=== PATIENT | female | born 1960 | race Hispanic/Latino ===

== ENCOUNTER 2018-06-10 16:42 | Emergency (ER) | payer SELFPAY ==
--- NOTE | 2018-06-10 16:51 | Emergency Department Report ---
Blank Doc - Documentation Documentation: This is a 57-year-old female that presents with epigastric pain with nausea and vomiting x6 months. Patient stated has history of umbilical hernia. Denies any radiation of pain. Exam: Incarcerated of umbilical hernia. Unable to reduce in triage. Discoloration noted as well. This initial assessment diagnostic orders/clinical plan/treatment(s) is/are subject to change based on patient's health status, clinical progression and re- assessment by fellow clinical providers in the ED. Further treatment and workup at subsequent clinical providers discretion. Patient/guardians urged not to elope from ED s their condition may be serious if not clinically assessed and managed. Initial orders include: 1-patient sent to main ED for further evaluation and treatment. 2- labs 3- EKG 4- [employer] home mortgage disclosure act specialist notified of physical exam and patient to be brought back [facility].
[2018-06-10] MEDS ORDERED: MORPHINE IV ONE (16:55)
[2018-06-10] MEDS ORDERED: NACL 0.9% 1000 ML 1,000 ML IV ONE (16:55)
[2018-06-10] MEDS ORDERED: ZOFRAN IV ONE (16:55)
--- NOTE | 2018-06-10 17:11 | Emergency Department Report ---
ED Abdominal Pain HPI - General Chief Complaint: Abdominal Pain Stated Complaint: ABD PAIN Time Seen by Provider: 06/10/18 16:52 Source: patient Mode of arrival: Wheelchair Limitations: No Limitations - History of Present Illness Initial Comments: 57-year-old female presents to the ED with abdominal pain that started 1 hour ago. Patient reports periumbilical pain. She states she had an umbilical hernia, but has never been this large. Usually thumb-sized, today golf ball sized. 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 Patient states the items were not heavy. Patient reports diarrhea over the last 3 days. Denies nausea and vomiting. MD Complaint: abdominal pain -: hour(s) (1) Location: periumbilical Radiation: none Migration to: no migration Severity: severe Severity scale (0 -10): 10 Quality: sharp Consistency: constant Improves With: nothing Worsens With: nothing Associated Symptoms: diarrhea - Related Data Previous Rx's Medication Instructions Recorded Last Taken Type ALBUTEROL Inhaler (OR & NICU) 2 puff IH QID PRN #1 inh 03/22/15 Unknown Rx [ProAir HFA Inhaler] Azithromycin [Zithromax Z-ANJALI] 1 mg PO DAILY #6 tab 03/22/15 Unknown Rx predniSONE [Deltasone] 20 mg PO QDAY #5 tab 03/22/15 Unknown Rx Meloxicam 7.5 mg PO QAM #7 tablet 02/21/17 Unknown Rx methOCARBAMOL [Robaxin TAB] 500 mg PO TID #15 tab 02/21/17 Unknown Rx methylPREDNISolone [Medrol] 4 mg PO QAM #1 tab.ds.pk 02/21/17 Unknown Rx traMADol [Ultram] 50 mg PO Q6HR PRN #7 tablet 06/10/18 Unknown Rx Allergies Allergy/AdvReac Type Severity Reaction Status Date / Time cefuroxime axetil Allergy Anaphylaxis Verified 03/21/15 20:58 [From Ceftin] ED Review of Systems ROS: Stated complaint: ABD PAIN Other details as noted in HPI Comment: All other systems reviewed and negative Constitutional: denies: chills, fever Gastrointestinal: abdominal pain, diarrhea. denies: nausea, vomiting ED Past Medical Hx - Past Medical History Previous Medical History?: Yes Hx Arthritis: Yes - Surgical History Past Surgical History?: Yes Hx Open Heart Surgery: Yes Additional Surgical History: TUBAL LIGATION, MVR in January 2018 - Social History Smoking Status: Current Every Day Smoker Substance Use Type: None - Medications Home Medications: Home Medications Medication Instructions Recorded Confirmed Last Taken Type ALBUTEROL Inhaler (OR & NICU) 2 puff IH QID PRN #1 inh 03/22/15 Unknown Rx [ProAir HFA Inhaler] Azithromycin [Zithromax Z-ANJALI] 1 mg PO DAILY #6 tab 03/22/15 Unknown Rx predniSONE [Deltasone] 20 mg PO QDAY #5 tab 03/22/15 Unknown Rx Meloxicam 7.5 mg PO QAM #7 tablet 02/21/17 Unknown Rx methOCARBAMOL [Robaxin TAB] 500 mg PO TID #15 tab 02/21/17 Unknown Rx methylPREDNISolone [Medrol] 4 mg PO QAM #1 tab.ds.pk 02/21/17 Unknown Rx traMADol [Ultram] 50 mg PO Q6HR PRN #7 tablet 06/10/18 Unknown Rx ED Physical Exam - General Limitations: No Limitations General appearance: alert, other (appears uncomfortable) - Head Head exam: Present: atraumatic, normocephalic - Eye Eye exam: Present: normal appearance - ENT ENT exam: Present: mucous membranes moist - Neck Neck exam: Present: normal inspection - Respiratory Respiratory exam: Present: normal lung sounds bilaterally. Absent: respiratory distress - Cardiovascular Cardiovascular Exam: Present: regular rate, normal rhythm - GI/Abdominal GI/Abdominal exam: Present: soft, hernia - Extremities Exam Extremities exam: Present: normal inspection - Neurological Exam Neurological exam: Present: alert, oriented X3 - Psychiatric Psychiatric exam: Present: normal affect, normal mood - Skin Skin exam: Present: warm, dry, intact, normal color ED Course Vital Signs 06/10/18 06/10/18 06/10/18 16:44 17:43 19:32 Temperature 97.4 F L Pulse Rate 66 69 Respiratory 20 20 14 Rate Blood Pressure Blood Pressure 108/70 [Right] O2 Sat by Pulse 99 98 Oximetry 06/10/18 06/10/18 06/10/18 19:46 20:00 20:15 Temperature Pulse Rate 73 72 74 Respiratory 17 13 16 Rate Blood Pressure 141/87 147/89 150/91 Blood Pressure [Right] O2 Sat by Pulse 98 98 98 Oximetry 06/10/18 06/10/1819 20:31 20:45 21:00 Temperature Pulse Rate 78 78 79 Respiratory 16 14 13 Rate Blood Pressure 141/93 132/81 137/85 Blood Pressure [Right] O2 Sat by Pulse 95 99 100 Oximetry 06/10/18 06/10/18 06/10/18 21:15 21:31 21:45 Temperature Pulse Rate 80 81 82 Respiratory 15 15 14 Rate Blood Pressure 138/86 142/85 135/86 Blood Pressure [Right] O2 Sat by Pulse 100 100 100 Oximetry 06/10/18 06/10/18 06/10/18 22:01 22:15 22:31 Temperature Pulse Rate 82 83 82 Respiratory 15 20 16 Rate Blood Pressure 139/85 153/91 152/88 Blood Pressure [Right] O2 Sat by Pulse 99 100 100 Oximetry 06/10/18 06/10/18 22:45 23:01 Temperature Pulse Rate 80 Respiratory 21 Rate Blood Pressure 128/75 126/66 Blood Pressure [Right] O2 Sat by Pulse 100 Oximetry - Reevaluation(s) Reevaluation #1: 06/10/18 17:00 Attempted to reduce hernia, however unable to do so. Will try again once pt is medicated. 06/10/18 18:06 Attempted to reduce hernia again since pt has received morphine. Unable to reduce. Dr Rousseau paged. 06/10/18 18:20 Spoke w/ Dr Rousseau, aware of pt. States if CT shows omentum only and no bowel, pt may require concious sedation to reduce. 06/10/18 19:[address] Rousseau. Hernia appears to contain bowel. Requests that we do conscious sedation to reduce, if unable he will take pt to OR 06/10/18 20:23 Pt sedated w/ ketamine. Hernia reduced. Spoke w/ Dr Rousseau. States if pt's pain is resolved, may discharge and follow up in his office. 06/10/18 22:19 Pt awake and oriented x 3. Denies any pain. Will d/c home. Advised pt to f/u w/ Dr Rousseau tomorrow. - Moderate Sedation Indications: other ASA Class: III Time of Last PO Intake: 15:30 Preparation: artists' booking representative applied, pulse oximeter, capnometry used, supplemental O2 applied, suction/airway equipment at bedside, IV secured Ketamine: IV Ketamine Dose: 80 Patient Tolerated Procedure: well ED Medical Decision Making - Lab Data Result diagrams: 06/10/18 16:58 06/10/18 16:58 - Radiology Data Radiology results: report reviewed, image reviewed - Differential Diagnosis bowel obstruction, incarcerated hernia, strangulated hernia Critical Care Time: Yes Critical care time in (mins) excluding proc time.: 30 Critical care attestation.: If time is entered above; I have spent that time in minutes in the direct care of this critically ill patient, excluding procedure time. Critical Care Time: 30 minutes ED Disposition Clinical Impression: Incarcerated hernia Disposition: DC-01 TO HOME OR SELFCARE Is pt being admited?: No Condition: Stable Instructions: Umbilical Hernia (ED), Moderate Sedation (ED) Prescriptions: traMADol [Ultram] 50 mg PO Q6HR PRN #7 tablet PRN Reason: Pain Referrals: BENJAMIN ROUSSEAU MD [Staff Physician] - 3-5 Days Time of Disposition: 22:18
[2018-06-10 17:55] LABS: Basophils % (Auto) 0.4 % (0.0-1.8); Eosinophils # (Auto) 0.1 K/mm3 (0.0-0.4); Eosinophils % (Auto) 1.3 % (0.0-4.3); Hematocrit 41.9 % (30.3-42.9); Hemoglobin 13.6 gm/dl (10.1-14.3); Lymphocytes # (Auto) 1.7 K/mm3 (1.2-5.4); Lymphocytes % (Auto) 15.9 % (13.4-35.0); Mean Corpuscular HGB Conc 33 % (30-34); Mean Corpuscular Volume 85 fl (79-97); Monocytes # (Auto) 0.7 K/mm3 (0.0-0.8); Monocytes % (Auto) 6.8 % (0.0-7.3); Platelet Count 276 K/mm3 (140-440); Red Blood Count 4.96 M/mm3 (3.65-5.03); Red Cell Distribution Width 19.3 % (13.2-15.2)
[2018-06-10 18:05] LABS: Partial Thromboplastin Time 24.1 Sec. (24.2-36.6)
[2018-06-10 18:12] LABS: Alanine Aminotransferase 16 units/L (7-56); Albumin 3.4 g/dL (3.9-5); BUN/Creatinine Ratio 28; Blood Urea Nitrogen 22 mg/dL (7-17); Calcium 8.3 mg/dL (8.4-10.2); Hemolysis Index 28
[2018-06-10] MEDS ORDERED: ATIVAN IV ONE (19:53)
[2018-06-10] MEDS ORDERED: KETALAR IV ONE (19:53)
[2018-06-10] MEDS ORDERED: NACL 0.9% 1000 ML 1,000 ML ONE (20:24)
--- NOTE | 2018-06-10 20:34 | Cat Scan Report ---
FINAL REPORT EXAM: CT ABDOMEN PELVIS W CON HISTORY: abd pain TECHNIQUE: Following IV administration of 100 cc of Omnipaque 300 axial helical imaging was performe d through the abdomen and pelvis with sagittal and coronal reformatted images obtained. Comparison: CT abdomen and pelvis dated February 21, 2017. FINDINGS: There is [id number] distension of the proximal and mid small bowel (2.6 centimeters) with air-f luid levels. There is herniation of a short-segment of distended mid to distal ileum into an anterior midline abdominal wall hernia which contains distended small bowel, fat and fluid. There is a transi tion in the caliber of the small bowel and the bowel exits the hernia. The caliber of the small bowel distal to the transition measures approximately 1 centimeter. The colon is normal caliber and contains stool. There is no evidence of pneumoperitoneum. There are mildly prominent mesenteric lymph nodes similar in appearance to the previous study. The la rgest measures approximately 1.3 centimeters in the maximal axial dimension. The liver, spleen, pancreas, kidneys and adrenal glands are unremarkable. The gallbladder is moderately distended and unremarkable. The abdominal aorta is normal caliber. The urinary bladder is moderately distended and unremarkable. The uterus and adnexa are unremarkable. There are small bilateral femoral hernias that contain fat. The bony structures are notable for degenerative disc and endplate change at the L2-L3 level similar in appearance to the previous study. IMPRESSION: 1. Small bowel obstruction in the mid to distal ileum secondary to herniation of a short segment of d istended small bowel into and anterior abdominal wall hernia. The above finding was discussed with Dr Jones at 8:30 p.m. June 10, 2018. 2. Small bilateral femoral hernias that contain fat. 3. Stable appearance of mildly prominent mesenteric lymph nodes. 4. Degenerative disc and endplate change L2-L3 level not significantly changed.
[2018-06-10] MEDS ORDERED: KETALAR ONE (23:00)
[2018-06-10 23:20] VITALS: BP 126/66
== END 2018-06-10 23:30 | disposition home or self-care (01) ==
LOC: ED 16:42
DX: K46.0 Unspecified abdominal hernia with obstruction, without gangrene (principal); M19.90 Unspecified osteoarthritis, unspecified site; F17.200 Nicotine dependence, unspecified, uncomplicated; Z98.51 Tubal ligation status; Z88.1 Allergy status to other antibiotic agents
CPT/HCPCS: 36415; 74177; 80053; 83690; 85025; 85610; 85730; 93005; 93010; 96361; 96374; 96375; 99291; J2060; J2270; J2405; J7030; Q9967

== ENCOUNTER 2018-07-23 06:09 | Inpatient (IN) | payer OTHER ==
[2018-07-23] MEDS ORDERED: NACL 0.9% 1000 ML 1,000 ML IV ONE (06:25)
[2018-07-23 06:50] LABS: Hematocrit 37.3 % (30.3-42.9); Hemoglobin 12.2 gm/dl (10.1-14.3); Mean Corpuscular HGB Conc 33 % (30-34); Mean Corpuscular Volume 86 fl (79-97); Platelet Count 236 K/mm3 (140-440); Red Blood Count 4.32 M/mm3 (3.65-5.03); Red Cell Distribution Width 19.2 % (13.2-15.2)
[2018-07-23 07:14] LABS: Alanine Aminotransferase 18 units/L (7-56); Albumin 3.3 g/dL (3.9-5); BUN/Creatinine Ratio 19; Blood Urea Nitrogen 13 mg/dL (7-17); Calcium 8.2 mg/dL (8.4-10.2); Hemolysis Index 19
[2018-07-23] MEDS ORDERED: ZOFRAN IV ONE (07:30)
[2018-07-23] MEDS ORDERED: SUBLIMAZE IV ONE ×2 (07:30→09:10)
--- NOTE | 2018-07-23 07:37 | Emergency Department Report ---
HPI - General Chief Complaint: Abdominal Pain Time Seen by Provider: 07/23/18 07:25 - HPI HPI: Room 20 The patient is a 57-year-old female presenting with a chief complaint of abdominal pain. The patient states she was awakened at 03:00 this morning with pain at her umbilical hernia site. Patient states the pain has been constant and unbearable. Patient denies nausea vomiting or fever. The patient states her last bowel movement occurred yesterday. The patient states she went to sleep at 22:00 last night and was asymptomatic Location: Abdomen Duration: [See above] Quality: [See above] Severity: [See above] Modifying factors: [see above] Context: [see above] Mode of transportation: [not driving] ED Past Medical Hx - Past Medical History Previous Medical History?: Yes Hx Hypertension: Yes Hx Arthritis: Yes Hx COPD: Yes (no home O2) Additional medical history: Umbilical hernia - Surgical History Past Surgical History?: Yes Hx Open Heart Surgery: Yes Additional Surgical History: TUBAL LIGATION, MVR in January 2018 - Family History Family history: no significant - Social History Smoking Status: Former Smoker (none 1.5 years) Substance Use Type: None - Medications Home Medications: Home Medications Medication Instructions Recorded Confirmed Last Taken Type ALBUTEROL Inhaler (OR & NICU) 2 puff IH QID PRN #1 inh 03/22/15 07/23/18 07/23/18 Rx [ProAir HFA Inhaler] Folic Acid [Folvite] 1 mg PO QDAY 07/23/18 07/23/18 07/22/18 History Metoprolol [Lopressor] mg PO BID 07/23/18 07/22/18 History predniSONE [Deltasone] 2.5 mg PO QDAY 07/23/18 07/23/18 07/22/18 History ED Review of Systems ROS: Stated complaint: HERNIA Other details as noted in HPI Constitutional: no symptoms reported. denies: fever Eyes: denies: eye pain ENT: denies: throat pain Respiratory: no symptoms reported Cardiovascular: denies: chest pain Endocrine: no symptoms reported Gastrointestinal: abdominal pain. denies: nausea, vomiting Genitourinary: denies: dysuria Musculoskeletal: denies: back pain Neurological: denies: headache Physical Exam - Physical Exam Vital Signs: Vital Signs 07/23/18 07/23/18 06:16 07:29 Temperature 98.6 F 97.9 F Pulse Rate 82 83 Respiratory 18 20 Rate Blood Pressure 111/49 Blood Pressure 110/72 [Right] O2 Sat by Pulse 95 93 Oximetry Physical Exam: GENERAL: The patient is well-developed well-nourished female lying on stretcher appearing to be in moderate discomfort. [] HEENT: Normocephalic. Atraumatic. Extraocular motions are intact. Patient has moist mucous membranes. NECK: Supple. Trachea midline CHEST/LUNGS: There is no respiratory distress noted. HEART/CARDIOVASCULAR: Regular. There is no tachycardia. There is no gallop rub or murmur. ABDOMEN: Umbilical hernia is present, firm and very tender to palpation. Unable to reduce with direct pressure. SKIN: There is no rash. There is no edema. There is no diaphoresis. NEURO: The patient is awake, alert, and oriented. The patient is cooperative. The patient has normal speech MUSCULOSKELETAL: There is no evidence of acute injury. ED Course Vital Signs 07/23/18 07/23/18 06:16 07:29 Temperature 98.6 F 97.9 F Pulse Rate 82 83 Respiratory 18 20 Rate Blood Pressure 111/49 Blood Pressure 110/72 [Right] O2 Sat by Pulse 95 93 Oximetry - Consultations Consultation #1: 07/23/18 07:36 Surgery paged- case discussed with Dr Helms 07/23/18 09:16 Surgery paged 07/23/18 09:[address] Helms. Plan to take to the OR to reduce the incarcerated hernia. Have hospitalist admit ED Medical Decision Making - Lab Data Result diagrams: 07/23/18 06:33 07/23/18 06:33 Laboratory Tests 07/23/18 07/23/18 06:33 06:33 WBC 25.5 H RBC 4.32 Hgb 12.2 Hct 37.3 MCV 86 MCH 28 MCHC 33 RDW 19.2 H Plt Count 236 Add Manual Diff Complete Total Counted 100 Seg Neuts % (Manual) 85.0 H Band Neutrophils % 0 Lymphocytes % (Manual) 7.0 L Reactive Lymphs % (Man) 0 Monocytes % (Manual) 6.0 Eosinophils % (Manual) 2.0 Basophils % (Manual) 0 Metamyelocytes % 0 Myelocytes % 0 Promyelocytes % 0 Blast Cells % 0 Nucleated RBC % Not Reportable Seg Neutrophils # Man 21.7 H Band Neutrophils # 0.0 Lymphocytes # (Manual) 1.8 Abs React Lymphs (Man) 0.0 Monocytes # (Manual) 1.5 H Eosinophils # (Manual) 0.5 H Basophils # (Manual) 0.0 Metamyelocytes # 0.0 Myelocytes # 0.0 Promyelocytes # 0.0 Blast Cells # 0.0 WBC Morphology Not Reportable Hypersegmented Neuts Not Reportable Hyposegmented Neuts Not Reportable Hypogranular Neuts Not Reportable Smudge Cells Not Reportable Toxic Granulation Not Reportable Toxic Vacuolation Not Reportable Dohle Bodies Not Reportable Pelger-Huet Anomaly Not Reportable Robbie Rods Not Reportable Platelet Estimate Consistent w auto Clumped Platelets Not Reportable Plt Clumps, EDTA Not Reportable Large Platelets Not Reportable Giant Platelets Not Reportable Platelet Satelliting Not Reportable Plt Morphology Comment Not Reportable RBC Morphology Not Reportable Dimorphic RBCs Not Reportable Polychromasia Not Reportable Hypochromasia Not Reportable Poikilocytosis Few Anisocytosis 1+ Microcytosis Few Macrocytosis Not Reportable Spherocytes Not Reportable Pappenheimer Bodies Not Reportable Sickle Cells Not Reportable Target Cells Not Reportable Tear Drop Cells Not Reportable Ovalocytes Rare Helmet Cells Not Reportable Vargas-Spangle Bodies Not Reportable [place] Rings Not Reportable [place] Cells Not Reportable Bite Cells Not Reportable Crenated Cell Not Reportable Elliptocytes Not Reportable Acanthocytes (Spur) Not Reportable Rouleaux Not Reportable Hemoglobin C Crystals Not Reportable Schistocytes Not Reportable Malaria parasites Not Reportable Fran Bodies Not Reportable Hem Pathologist Commnt No Sodium 137 Potassium 3.6 Chloride 101.3 Carbon Dioxide 24 Anion Gap 15 BUN 13 Creatinine 0.7 Estimated GFR > 60 BUN/Creatinine Ratio 19 Glucose 144 H Calcium 8.2 L Total Bilirubin 1.00 AST 13 ALT 18 Alkaline Phosphatase 70 Total Protein 5.6 L Albumin 3.3 L Albumin/Globulin Ratio 1.4 - Radiology Data Radiology results: report reviewed (CT abdomen and pelvis), image reviewed (CT abdomen and pelvis) [facility] [address] [place] [address] Cat Scan Report Signed Patient: BALWINDER CURTIS MR#: [id number] : 1960 Acct:[id number] Age/Sex: 57 / F ADM Date: 07/23/18 Loc: ED Attending Dr: Ordering Physician: RANDY ROMERO MD Date of Service: 07/23/18 Procedure(s): CT abdomen pelvis w con Accession Number(s): [id number] cc: RANDY ROMERO MD CT ABDOMEN PELVIS WITH CONTRAST: HISTORY: Umbilical hernia, acute abdominal pain. COMPARISON: 06/10/18. TECHNIQUE: Helical CT in 1.25mm intervals following IV contrast. Sagittal and coronal reconstructions. FINDINGS: Lung bases: Borderline to mild cardiomegaly. Small right pleural effusion. Multifocal infiltrates have developed in the right middle lobe, right lower lobe and medial left lower lobe. Liver: Within normal limits. Biliary system: Normal. Pancreas: Normal. Spleen: Normal. Kidneys/ureters/bladder: Normal. 1 cm left renal cyst is noted. Adrenal glands: Normal. Aorta: Mild diffuse calcifications. No stenosis, aneurysm or dissection. Intestines: An umbilical hernia with a 1.6 cm neck is again identified. A short segment of small bowel is incorporated into the hernia sac which measures approximately 7 cm in diameter. There is a small amount of ascitic fluid in the hernia sac but no obvious thickened or ischemic bowel loops. There appear to be a few proximal small bowel loops which are borderline dilated with small fluid levels. The remainder of the GI system is unremarkable given no oral contrast was administered. Appendix: Normal. Pelvic viscera: The uterus is slightly heterogeneous suggesting small fibroids. The adnexa are unremarkable. Ascites: None. Adenopathy: None. Musculoskeletal: Intact. Mild thoracolumbar spondylosis. IMPRESSION: Umbilical hernia containing a short segment of small bowel as outlined above. These findings are not significantly changed since 06/10/18. Multifocal infiltrates at the lung bases. Consider pneumonia or aspiration. Mild cardiomegaly and small right pleural effusion. Transcribed By: TTR Dictated By: LISET PEREZ JR, MD Electronically Authenticated By: LISET PEREZ JR, MD Signed Date/Time: 07/23/18908 DD/ 4 TD/TT: 07/23/18908 - Differential Diagnosis incarcerated hernia, strangulated hernia Critical care attestation.: If time is entered above; I have spent that time in minutes in the direct care of this critically ill patient, excluding procedure time. ED Disposition Clinical Impression: Acute abdominal pain, Incarcerated hernia, Leukocytosis Disposition: OP ADMIT IP TO THIS HOSP Is pt being admited?: Yes Does the pt Need Aspirin: No Condition: Fair Instructions: Abdominal Pain (ED) Referrals: DELFINO LOPEZ MD [Primary Care Provider] - 3-5 Days Time of Disposition: 09:23 (hospitalist paged)
[2018-07-23 08:45] LABS: Basophils % (Manual) 0 % (0.0-1.8); Total Cells Counted 100
[2018-07-23 08:46] LABS: Anisocytosis 1+; Ovalocytes Rare; Platelet Estimate Consistent w Auto; Poikilocytosis Few
--- NOTE | 2018-07-23 09:13 | Cat Scan Report ---
CT ABDOMEN PELVIS WITH CONTRAST: HISTORY: Umbilical hernia, acute abdominal pain. COMPARISON: 06/10/18. TECHNIQUE: Helical CT in 1.25mm intervals following IV contrast. Sagittal and coronal reconstructions. FINDINGS: Lung bases: Borderline to mild cardiomegaly. Small right pleural effusion. Multifocal infiltrates have developed in the right middle lobe, right lower lobe and medial left lower lobe. Liver: Within normal limits. Biliary system: Normal. Pancreas: Normal. Spleen: Normal. Kidneys/ureters/bladder: Normal. 1 cm left renal cyst is noted. Adrenal glands: Normal. Aorta: Mild diffuse calcifications. No stenosis, aneurysm or dissection. Intestines: An umbilical hernia with a 1.6 cm neck is again identified. A short segment of small bowel is incorporated into the hernia sac which measures approximately 7 cm in diameter. There is a small amount of ascitic fluid in the hernia sac but no obvious thickened or ischemic bowel loops. There appear to be a few proximal small bowel loops which are borderline dilated with small fluid levels. The remainder of the GI system is unremarkable given no oral contrast was administered. Appendix: Normal. Pelvic viscera: The uterus is slightly heterogeneous suggesting small fibroids. The adnexa are unremarkable. Ascites: None. Adenopathy: None. Musculoskeletal: Intact. Mild thoracolumbar spondylosis. IMPRESSION: Umbilical hernia containing a short segment of small bowel as outlined above. These findings are not significantly changed since 06/10/18. Multifocal infiltrates at the lung bases. Consider pneumonia or aspiration. Mild cardiomegaly and small right pleural effusion.
[2018-07-23 09:23] LABS: Bilirubin,Urine NEG (Negative); Blood,Urine NEG (Negative); Color,Urine Yellow (Yellow); Mucus,Urine FEW /HPF; Protein,Urine <15 mg/dL mg/dL (Negative)
[2018-07-23] MEDS ORDERED: DILAUDID IV ONE (10:15)
[2018-07-23] MEDS ORDERED: SUBLIMAZE IV PRN (12:17)
[2018-07-23] MEDS ORDERED: NARCAN 0.4 MG/1 ML IV PRN (12:17)
[2018-07-23] MEDS ORDERED: ZOFRAN IV PRN ×2 (12:17→15:53)
[2018-07-23] MEDS ORDERED: DILAUDID IV PRN (12:17)
[2018-07-23] MEDS ORDERED: DEMEROL IV PRN (12:17)
--- NOTE | 2018-07-23 12:29 | Anesthesia Day of Surgery ---
Anesthesia Day of Surgery - Day of Surgery Patient Examined: Yes Patient H&P Reviewed: Yes Patient is NPO: Yes Beta Blockers: Yes Cardiac Clearance: No Pulmonary Clearance: No
--- NOTE | 2018-07-23 12:29 | Anesthesia Consultation ---
Anesthesia Consult and Med Hx Date of service: 07/23/18 - Airway Anesthetic Teeth Evaluation: Dentures ROM Head & Neck: Adequate Mental/Hyoid Distance: Adequate Mallampati Class: Class II Intubation Access Assessment: Good - Pulmonary Exam CTA: Yes - Cardiac Exam Cardiac Exam: RRR - Pre-Operative Health Status ASA Pre-Surgery Classification: ASA3, Emergency Proposed Anesthetic Plan: General - Pulmonary COPD: Yes (no home O2) - Cardiovascular System Hx Hypertension: Yes
[2018-07-23] MEDS ORDERED: NACL 0.9% 1000 ML 1,000 ML ONE (12:35)
[2018-07-23] MEDS: NACL 0.9% 1000 ML 1,000 ML IV SCH ×2 (12:43→21:42)
[2018-07-23] MEDS ORDERED: LEVAQUIN 500MG/100ML 500 MG/100 ML BAG IV NR (13:00)
[2018-07-23] MEDS ORDERED: PROAIR IH PRN (13:19)
--- NOTE | 2018-07-23 13:40 | Consultation ---
History of Present Illness Consult date: 07/23/18 Reason for consult: abdominal pain Chief complaint: abdominal pain - History of present illness History of present illness: 57 yo obese F with hx of known umbilical hernia, mitral valve replacement ([facility]) presents to ER with acute onset pain at the umbilicus, sharp, nonradiating. No alleviating or exacerbating factors. She has had the hernia for 3 years. She was seen in the ER in May 2018 for the same reason. The hernia was reduced after ketamine was administered and the patient was told to follow up with Dr. Matos. She did not follow up because she didn't have any insurance. She denies f/c, cp, sob, n/v, c/d. She last saw her sanitation truck cleaner Dr. Jaramillo last month who she states said everything was ok with her heart. She is not on any blood thinners. Past History Past Medical History: hypertension, hyperlipidemia, other (mitral valve) Past Surgical History: Other (mitral valve replacement (biologic) and tubal ligation) Social history: no significant social history Family history: no significant family history Medications and Allergies Allergies Allergy/AdvReac Type Severity Reaction Status Date / Time amoxicillin [From Augmentin] Allergy Vomiting Verified 07/23/18 07:54 cefuroxime axetil Allergy Anaphylaxis Verified 03/21/15 20:58 [From Ceftin] clavulanic acid Allergy Vomiting Verified 07/23/18 07:54 [From Augmentin] Home Medications Medication Instructions Recorded Confirmed Last Taken Type ALBUTEROL Inhaler (OR & NICU) 2 puff IH QID PRN #1 inh 03/22/15 07/23/18 07/22/18 07:00 Rx [ProAir HFA Inhaler] AtorvaSTATin [Lipitor] 40 mg PO QHS 07/23/18 07/23/18 07/22/18 21:00 History Folic Acid [Folvite] 1 mg PO QDAY 07/23/18 07/23/18 07/22/18 09:00 History Furosemide [Lasix TAB] 40 mg PO QDAY 07/23/18 07/23/18 07/22/18 09:00 History Metoprolol [Lopressor] 25 mg PO BID 07/23/18 07/23/18 07/22/18 09:00 History Potassium Chloride [K-Dur] 20 meq PO BID 07/23/18 07/23/18 07/22/18 09:00 History predniSONE [Deltasone] 2.5 mg PO QDAY 07/23/18 07/23/18 07/22/18 09:00 History Active Meds: Active Medications Fentanyl (Sublimaze) 50 mcg IV Q5MIN PRN PRN Reason: Pain , Severe (7-10) Stop: 07/23/18 23:59 Hydromorphone HCl (Dilaudid) 0.25 mg IV Q10MIN PRN PRN Reason: Pain, Moderate (4-6) Stop: 07/23/18 23:59 Metronidazole (Flagyl 500 Mg/100 Ml) 500 mg in 100 mls @ 200 mls/hr IV PREOP NR; Protocol Stop: 07/23/18 23:59 Levofloxacin/Dextrose (Levaquin 500mg/100ml) 500 mg in 100 mls @ 100 mls/hr IV PREOP NR; Protocol Stop: 07/23/18 23:59 Sodium Chloride (Nacl 0.9% 1000 Ml) 1,000 mls @ 75 mls/hr IV DIRECT RICKY Last Admin: 07/23/18 12:43 Dose: 75 mls/hr Documented by: Meperidine HCl (Demerol) 25 mg IV ONCE PRN PRN Reason: Shivering Stop: 07/23/18 23:59 Naloxone HCl (Narcan 0.4 Mg/1 Ml) 0.1 mg IV Q2MIN PRN PRN Reason: Res Rate </= 8 or 02 SAT < 92% Stop: 07/23/18 23:59 Ondansetron HCl (Zofran) 4 mg IV ONCE PRN PRN Reason: Nausea And Vomiting Stop: 07/23/18 23:59 Review of Systems All systems: negative (10 pt ROS performed and negative except for that listed in HPI) Exam Vital Signs Temp Pulse Resp BP Pulse Ox 98.6 F 82 18 111/49 95 07/23/18 06:16 07/23/18 06:16 07/23/18 06:16 07/23/18 06:16 07/23/18 06:16 Narrative exam: Gen: AAOx3. moderate distress due to abdominal pain ENT: no scleral icterus or conjunctival pallor CV: s1, s2+ resp: even and unlabored Abd: soft, ND, obese, + TTP at the umbilicus. Firm umbilical hernia, not reducible, very TTP. Mild blue discoloration of skin. no r/r/g Ext: no c/c/e Results - Labs 07/23/18 06:33 07/23/18 06:33 Abnormal lab results 07/23/18 07/23/18 Range/Units 06:33 06:33 WBC 25.5 H (4.5-11.0) K/mm3 RDW 19.2 H (13.2-15.2) % Seg Neuts % (Manual) 85.0 H (40.0-70.0) % Lymphocytes % (Manual) 7.0 L (13.4-35.0) % Seg Neutrophils # Man 21.7 H (1.8-7.7) K/mm3 Monocytes # (Manual) 1.5 H (0.0-0.8) K/mm3 Eosinophils # (Manual) 0.5 H (0.0-0.4) K/mm3 Glucose 144 H (65-100) mg/dL Calcium 8.2 L (8.4-10.2) mg/dL Total Protein 5.6 L (6.3-8.2) g/dL Albumin 3.3 L (3.9-5) g/dL Diabetes panel 07/23/18 Range/Units 06:33 Sodium 137 (137-145) mmol/L Potassium 3.6 (3.6-5.0) mmol/L Chloride 101.3 (98-107) mmol/L Carbon Dioxide 24 (22-30) mmol/L BUN 13 (7-17) mg/dL Creatinine 0.7 (0.7-1.2) mg/dL Glucose 144 H (65-100) mg/dL Calcium 8.2 L (8.4-10.2) mg/dL AST 13 (5-40) units/L ALT 18 (7-56) units/L Alkaline Phosphatase 70 (35-129) units/L Total Protein 5.6 L (6.3-8.2) g/dL Albumin 3.3 L (3.9-5) g/dL Calcium panel 07/23/18 Range/Units 06:33 Calcium 8.2 L (8.4-10.2) mg/dL Albumin 3.3 L (3.9-5) g/dL Pituitary panel 07/23/18 Range/Units 06:33 Sodium 137 (137-145) mmol/L Potassium 3.6 (3.6-5.0) mmol/L Chloride 101.3 (98-107) mmol/L Carbon Dioxide 24 (22-30) mmol/L BUN 13 (7-17) mg/dL Creatinine 0.7 (0.7-1.2) mg/dL Glucose 144 H (65-100) mg/dL Calcium 8.2 L (8.4-10.2) mg/dL Adrenal panel 07/23/18 Range/Units 06:33 Sodium 137 (137-145) mmol/L Potassium 3.6 (3.6-5.0) mmol/L Chloride 101.3 (98-107) mmol/L Carbon Dioxide 24 (22-30) mmol/L BUN 13 (7-17) mg/dL Creatinine 0.7 (0.7-1.2) mg/dL Glucose 144 H (65-100) mg/dL Calcium 8.2 L (8.4-10.2) mg/dL Total Bilirubin 1.00 (0.1-1.2) mg/dL AST 13 (5-40) units/L ALT 18 (7-56) units/L Alkaline Phosphatase 70 (35-129) units/L Total Protein 5.6 L (6.3-8.2) g/dL Albumin 3.3 L (3.9-5) g/dL - Imaging CT scan - abdomen: report reviewed, image reviewed CT scan - pelvis: report reviewed, image reviewed Assessment and Plan 57 yo F with incarcerated umbilical hernia containing bowel, not reducible Plan; 1. Hernia is not reducible, very tender to palpation and firm, elevated WBC all concerning for ischemia of bowel. Will need operative reduction, evaluation of bowel and repair of hernia. I discussed surgery with the patient and all risks, benefits, and alternatives to surgery discussed. Consent obtained 2. NPO 2. IVF 3. EKG. 4. prn pain control 5. DVT ppx 6. preop abx levaquin/flagyl Thank you, please call with questions.
[2018-07-23] MEDS ORDERED: XYLOCAINE 1% 20 mL ONE (13:41)
[2018-07-23] MEDS ORDERED: MARCAINE 0.5% INFILTRATI ONE ×2 (13:41→15:28)
--- NOTE | 2018-07-23 13:44 | History and Physical Report ---
History of Present Illness Date of examination: 07/23/18 Date of admission: 07/23/18 10:13 Chief complaint: Abdominal pain History of present illness: The patient is a 57-year-old female with a history of umbilical hernia, mitral valve replacement (biologic) presenting with a chief complaint of abdominal pain, . The patient states she was awakened at 03:00 this morning with pain at her umbilical hernia site. Patient states the pain has been constant and unbearable. Patient denies nausea vomiting or fever. No alleviating or exacerbating factors. She has had the hernia for 3 years. She was seen in the ER in May 2018 for the same reason. The hernia was reduced after ketamine was administered and the patient was told to follow up with Dr. Matos. She did not follow up because she didn't have any insurance. The patient states her last bowel movement occurred yesterday. Denies any chest pain, orthoopnea or PND. Past History Past Medical History: other (umbilical hernia, mitral valve replacement.) Past Surgical History: Other ([place] valve replacement) Social history: denies: smoking, alcohol abuse Family history: no significant family history Medications and Allergies Allergies Allergy/AdvReac Type Severity Reaction Status Date / Time amoxicillin [From Augmentin] Allergy Vomiting Verified 07/23/18 07:54 cefuroxime axetil Allergy Anaphylaxis Verified 03/21/15 20:58 [From Ceftin] clavulanic acid Allergy Vomiting Verified 07/23/18 07:54 [From Augmentin] Home Medications Medication Instructions Recorded Confirmed Last Taken Type ALBUTEROL Inhaler (OR & NICU) 2 puff IH QID PRN #1 inh 03/22/15 07/23/18 07/22/18 07:00 Rx [ProAir HFA Inhaler] AtorvaSTATin [Lipitor] 40 mg PO QHS 07/23/18 07/23/18 07/22/18 21:00 History Folic Acid [Folvite] 1 mg PO QDAY 07/23/18 07/23/18 07/22/18 09:00 History Furosemide [Lasix TAB] 40 mg PO QDAY 07/23/18 07/23/18 07/22/18 09:00 History Metoprolol [Lopressor] 25 mg PO BID 07/23/18 07/23/18 07/22/18 09:00 History Potassium Chloride [K-Dur] 20 meq PO BID 07/23/18 07/23/18 07/22/18 09:00 History predniSONE [Deltasone] 2.5 mg PO QDAY 07/23/18 07/23/18 07/22/18 09:00 History Active Meds: Active Medications Fentanyl (Sublimaze) 50 mcg IV Q5MIN PRN PRN Reason: Pain , Severe (7-10) Stop: 07/23/18 23:59 Hydromorphone HCl (Dilaudid) 0.25 mg IV Q10MIN PRN PRN Reason: Pain, Moderate (4-6) Stop: 07/23/18 23:59 Metronidazole (Flagyl 500 Mg/100 Ml) 500 mg in 100 mls @ 200 mls/hr IV PREOP NR; Protocol Stop: 07/23/18 23:59 Levofloxacin/Dextrose (Levaquin 500mg/100ml) 500 mg in 100 mls @ 100 mls/hr IV PREOP NR; Protocol Stop: 07/23/18 23:59 Sodium Chloride (Nacl 0.9% 1000 Ml) 1,000 mls @ 75 mls/hr IV DIRECT RICKY Last Admin: 07/23/18 12:43 Dose: 75 mls/hr Documented by: Meperidine HCl (Demerol) 25 mg IV ONCE PRN PRN Reason: Shivering Stop: 07/23/18 23:59 Naloxone HCl (Narcan 0.4 Mg/1 Ml) 0.1 mg IV Q2MIN PRN PRN Reason: Res Rate </= 8 or 02 SAT < 92% Stop: 07/23/18 23:59 Ondansetron HCl (Zofran) 4 mg IV ONCE PRN PRN Reason: Nausea And Vomiting Stop: 07/23/18 23:59 Review of systems Constitutional: Well Nourished and Well developed. Head: NC/ AT Eyes: Denies any visual impairments. No discharge from the eyes Nose: Denies any rhinorrhea or epistaxis Throats: Denies any post nasal drainage. Ears: Denies any hearing deficits Cardiovascular system: Denies any chest pain, shortness of breath, orthopnea, paroxysmal nocturnal dyspnea, or palpitation. Respiratory system: Denies any cough, difficulty breathing, wheezing, pleuritic chest pain, Gastrointestinal system: Has abdominal pain, nausea vomiting, hematemesis or melena. Neurological system: Denies any headache, slurred speech, facial droop, lateralizing weakness Genitalia system: Denies any dysuria, urinary frequency or urgency, urethral discharge Skin: No rashes, hyperpigmented spots. Hematological: Denies any cervical tenderness hemorrhages or petechia. Immunological: Denies any multiple septic spots, Lymphatic: Denies any generalized lymphadenopathy. Endocrine: Denies any polyuria, polydipsia, polyphagia. No heat or cold intolerance. Musculoskeletal system: No joint pain or swelling. Psych: No visual, tactile, auditory or hallucination Exam - Physical Exam Narrative exam: Constitutional: Well-nourished well-developed. In no distress Head: Normocephalic atraumatic Eyes: Pupils are equal round and reactive to light Nose: No enlarged turbinates, no septal deviation. Mouth: Moist mucous membranes. Neck: Supple no thyromegaly. No bruit. No JVD Heart: Mechanical valve soound. RRR, S1-S2 normal. No rubs murmurs or gallop Lungs: Clear to auscultation bilaterally. no rales or rhonchi Abdomen: Soft, nontender. Bowel sound are present. Extremities: No edema, no cyanosis, no clubbing. Neuro: Alert oriented Oriented x3. No focal sensory or motor deficit. Skin: No rashes or hyperpigmented spots Musculoskeletal system: No joint pain or swelling Hematological: No petechia or subcutanous hemorrhages. Immunological: No multiple septic spots on the skin Lymphatic: No generalized lymphadenopathy Psychiatry: Euthymic. Calm. - Constitutional Vitals: Temp Pulse Resp BP Pulse Ox 97.2 F L 92 H 16 135/96 95 07/23/18 12:35 07/23/18 12:35 07/23/18 12:35 07/23/18 12:35 07/23/18 12:35 Results - Labs CBC & Chem 7: 07/23/18 06:33 07/23/18 06:33 Labs: Abnormal lab results 07/23/18 07/23/18 Range/Units 06:33 06:33 WBC 25.5 H (4.5-11.0) K/mm3 RDW 19.2 H (13.2-15.2) % Seg Neuts % (Manual) 85.0 H (40.0-70.0) % Lymphocytes % (Manual) 7.0 L (13.4-35.0) % Seg Neutrophils # Man 21.7 H (1.8-7.7) K/mm3 Monocytes # (Manual) 1.5 H (0.0-0.8) K/mm3 Eosinophils # (Manual) 0.5 H (0.0-0.4) K/mm3 Glucose 144 H (65-100) mg/dL Calcium 8.2 L (8.4-10.2) mg/dL Total Protein 5.6 L (6.3-8.2) g/dL Albumin 3.3 L (3.9-5) g/dL Assessment and Plan - Incercerated umbilical hernia containing small segment of bowel NPO, NGT, IVF iv Levaqin and flagyl Surgeon consulted - Pneumonia Blood cx, sputum cx, Pox, iv Levaquin - Leukocytosis Likely from incercerated unbilical hernia and pneumonia Blood Cx and urine cx obtained Commence on imperical antibiotic - Hyperglycemia Obtain A1c level If diabetic commence patient on sliding scale insulin - Cardiomegaly per CXR Continue with home meds that include Furosemide, metoprolol, Kcl - DVT and GI PPx with heparin and pepcid Advance Directives: Yes VTE prophylaxis: Chemical Plan of care discussed with patient/family who expressed understanding: Yes Time spend:during this admission process in direct pt care, review of laboratory and radiological data as welll as disusing management plan with pt was 35 min
[2018-07-23] MEDS ORDERED: ZEMURON IV ONE (13:48)
[2018-07-23] MEDS ORDERED: DIPRIVAN 10 MG/ML IV ONE (13:48)
[2018-07-23] MEDS ORDERED: DILAUDID ONE (13:48)
[2018-07-23] MEDS ORDERED: XYLOCAINE MPF 2% ONE (13:48)
[2018-07-23] MEDS ORDERED: PROVENTIL IH PRN (14:10)
[2018-07-23] MEDS ORDERED: DECADRON ONE (14:17)
[2018-07-23] MEDS ORDERED: NEO SYNEPHRINE/NS Syringe(OR USE) IV ONE (14:33)
[2018-07-23] MEDS ORDERED: XYLOCAINE 1% 20 mL INFILTRATI ONE (15:28)
[2018-07-23] MEDS ORDERED: WATER FOR IRRIG STERILE IR ONE (15:29)
[2018-07-23] MEDS ORDERED: BLOXIVERZ ONE (15:46)
[2018-07-23] MEDS ORDERED: ROBINUL ONE (15:46)
[2018-07-23] MEDS ORDERED: ZOFRAN ONE (15:49)
--- NOTE | 2018-07-23 15:52 | Post Operative Note ---
Date of procedure: 07/23/18 Pre-op diagnosis: incarcerated umbilical hernia Post-op diagnosis: same Findings: Knuckle of small bowel along with preperitoneal fat incarcerated in 2cm umbilical hernia defect. Small bowel examined and although with patchy ecchymosis it was viable with some peristalsis. No perforation. Procedure: diagnostic laparoscopy, reduction of incarcerated small bowel, open umbilical hernia repair with mesh Anesthesia: GETA, local Surgeon: MARIA FERNANDA KIM [employer] Design Drafter: BIRDIE FAJARDO Estimated blood loss: minimal Pathology: list (hernia contents) Specimen disposition: to lab Condition: stable Disposition: PACU
--- NOTE | 2018-07-23 18:08 | Post Anesthesia Evaluation ---
- Post Anesthesia Evaluation Patient Participated: Yes Airway Patent: Yes Stable Respiratory Function: Yes Nausea/Vomiting: No Temp > 96.8F: Yes Pain Manageable: Yes Adequeate Hydration: Yes Anesthesia Complications: No
[2018-07-23 21:05] LABS: Chol/HDL Ratio 2.62 %
[2018-07-23] MEDS: FLAGYL 500 MG/100 ML 500 MG/100 ML BAG IV NR ×2 (21:42→21:56)
[2018-07-23] MEDS: K-DUR PO SCH (21:44)
[2018-07-23] MEDS: LOPRESSOR PO SCH (21:44)
[2018-07-23] MEDS: HEPARIN SUB-Q SCH (21:46)
[2018-07-23] MEDS: MORPHINE IV PRN (21:59)
[2018-07-24] MEDS: LOPRESSOR PO SCH ×2 (02:32→09:46)
[2018-07-24] MEDS: K-DUR PO SCH ×2 (02:32→09:45)
[2018-07-24] MEDS: HEPARIN SUB-Q SCH ×3 (02:33→14:14)
[2018-07-24] MEDS: FLAGYL 500 MG/100 ML 500 MG/100 ML BAG IV SCH ×2 (02:36→05:08)
[2018-07-24] MEDS: FOLVITE PO SCH ×2 (02:37→12:24)
[2018-07-24] MEDS: LASIX PO SCH ×2 (02:37→09:44)
[2018-07-24] MEDS: MORPHINE IV PRN ×2 (03:09→09:34)
[2018-07-24] MEDS ORDERED: LEVAQUIN 750MG/150ML 750 MG/150 ML BAG IV SCH (10:00)
[2018-07-24] MEDS ORDERED: PERCOCET 5/325 PO PRN (11:42)
--- NOTE | 2018-07-24 12:32 | Progress Note ---
Assessment and Plan Assessment and plan: 57F w hx of MVR-biological, who pw imcarcerated umbilicial hernia -she received laparoscopic reduction of incarcerated small bowel and open umbilical hernia with mesh -multifocal infiltrates in lung bases, obtain CXR Diagnosis Incarcerated umbilicial hernia containing segment of bowel pna sepsis hx of mitral valve replacement- bio valve History Interval history: Review of systems Constitutional: No fevers, no malaise, no joint pains CVS: No chest pain, no orthopnea, no dyspnea on exertion, no pedal edema GI: No abdominal pain, no diarrhea, no vomiting, no constipation Respiratory: No shortness of breath, no wheezing, no coughing Hospitalist Physical - Physical exam Narrative exam: General.: Appears well, no distress, nontoxic HEENT: Moist mucous membranes, extraocular muscles intact, no lymphadenopathy Neck: supple Cardiac: S1-S2 heard Lungs: clear to auscultation bilaterally Abdomen: soft , nontender, nondistended, bowel sounds positive Extremities: no edema clubbing or cyanosis Skin: no rash or lesions Neurologic: no gross focal deficits Psych: calm, and cooperative - Constitutional Vitals: Temp Pulse Resp BP Pulse Ox 97.8 F 78 16 132/84 98 07/24/18 11:00 07/24/18 11:00 07/24/18 11:00 07/24/18 11:00 07/24/18 11:00 Results - Labs CBC & Chem 7: 07/23/18 06:33 07/23/18 06:33 Labs: Laboratory Last Values WBC 25.5 K/mm3 (4.5-11.0) H 07/23/18 06:33 RBC 4.32 M/mm3 (3.65-5.03) 07/23/18 06:33 Hgb 12.2 gm/dl (10.1-14.3) 07/23/18 06:33 Hct 37.3 % (30.3-42.9) 07/23/18 06:33 MCV 86 fl (79-97) 07/23/18 06:33 MCH 28 pg (28-32) 07/23/18 06:33 MCHC 33 % (30-34) 07/23/18 06:33 RDW 19.2 % (13.2-15.2) H 07/23/18 06:33 Plt Count 236 K/mm3 (140-440) 07/23/18 06:33 Add Manual Diff Complete 07/23/18 06:33 Total Counted 100 07/23/18 06:33 Seg Neuts % (Manual) 85.0 % (40.0-70.0) H 07/23/18 06:33 Band Neutrophils % 0 % 07/23/18 06:33 Lymphocytes % (Manual) 7.0 % (13.4-35.0) L 07/23/18 06:33 Reactive Lymphs % (Man) 0 % 07/23/18 06:33 Monocytes % (Manual) 6.0 % (0.0-7.3) 07/23/18 06:33 Eosinophils % (Manual) 2.0 % (0.0-4.3) 07/23/18 06:33 Basophils % (Manual) 0 % (0.0-1.8) 07/23/18 06:33 Metamyelocytes % 0 % 07/23/18 06:33 Myelocytes % 0 % 07/23/18 06:33 Promyelocytes % 0 % 07/23/18 06:33 Blast Cells % 0 % 07/23/18 06:33 Nucleated RBC % Not Reportable 07/23/18 06:33 Seg Neutrophils # Man 21.7 K/mm3 (1.8-7.7) H 07/23/18 06:33 Band Neutrophils # 0.0 K/mm3 07/23/18 06:33 Lymphocytes # (Manual) 1.8 K/mm3 (1.2-5.4) 07/23/18 06:33 Abs React Lymphs (Man) 0.0 K/mm3 07/23/18 06:33 Monocytes # (Manual) 1.5 K/mm3 (0.0-0.8) H 07/23/18 06:33 Eosinophils # (Manual) 0.5 K/mm3 (0.0-0.4) H 07/23/18 06:33 Basophils # (Manual) 0.0 K/mm3 (0.0-0.1) 07/23/18 06:33 Metamyelocytes # 0.0 K/mm3 07/23/18 06:33 Myelocytes # 0.0 K/mm3 07/23/18 06:33 Promyelocytes # 0.0 K/mm3 07/23/18 06:33 Blast Cells # 0.0 K/mm3 07/23/18 06:33 WBC Morphology Not Reportable 07/23/18 06:33 Hypersegmented Neuts Not Reportable 07/23/18 06:33 Hyposegmented Neuts Not Reportable 07/23/18 06:33 Hypogranular Neuts Not Reportable 07/23/18 06:33 Smudge Cells Not Reportable 07/23/18 06:33 Toxic Granulation Not Reportable 07/23/18 06:33 Toxic Vacuolation Not Reportable 07/23/18 06:33 Dohle Bodies Not Reportable 07/23/18 06:33 Pelger-Huet Anomaly Not Reportable 07/23/18 06:33 Robbie Rods Not Reportable 07/23/18 06:33 Platelet Estimate Consistent w auto 07/23/18 06:33 Clumped Platelets Not Reportable 07/23/18 06:33 Plt Clumps, EDTA Not Reportable 07/23/18 06:33 Large Platelets Not Reportable 07/23/18 06:33 Giant Platelets Not Reportable 07/23/18 06:33 Platelet Satelliting Not Reportable 07/23/18 06:33 Plt Morphology Comment Not Reportable 07/23/18 06:33 RBC Morphology Not Reportable 07/23/18 06:33 Dimorphic RBCs Not Reportable 07/23/18 06:33 Polychromasia Not Reportable 07/23/18 06:33 Hypochromasia Not Reportable 07/23/18 06:33 Poikilocytosis Few 07/23/18 06:33 Anisocytosis 1+ 07/23/18 06:33 Microcytosis Few 07/23/18 06:33 Macrocytosis Not Reportable 07/23/18 06:33 Spherocytes Not Reportable 07/23/18 06:33 Pappenheimer Bodies Not Reportable 07/23/18 06:33 Sickle Cells Not Reportable 07/23/18 06:33 Target Cells Not Reportable 07/23/18 06:33 Tear Drop Cells Not Reportable 07/23/18 06:33 Ovalocytes Rare 07/23/18 06:33 Helmet Cells Not Reportable 07/23/18 06:33 [place] Bodies Not Reportable 07/23/18 06:33 [place] Rings Not Reportable 07/23/18 06:33 [place] Cells Not Reportable 07/23/18 06:33 Bite Cells Not Reportable 07/23/18 06:33 Crenated Cell Not Reportable 07/23/18 06:33 Elliptocytes Not Reportable 07/23/18 06:33 Acanthocytes (Spur) Not Reportable 07/23/18 06:33 Rouleaux Not Reportable 07/23/18 06:33 Hemoglobin C Crystals Not Reportable 07/23/18 06:33 Schistocytes Not Reportable 07/23/18 06:33 Malaria parasites Not Reportable 07/23/18 06:33 Fran Bodies Not Reportable 07/23/18 06:33 Hem Pathologist Commnt No 07/23/18 06:33 Sodium 137 mmol/L (137-145) 07/23/18 06:33 Potassium 3.6 mmol/L (3.6-5.0) 07/23/18 06:33 Chloride 101.3 mmol/L (98-107) 07/23/18 06:33 Carbon Dioxide 24 mmol/L (22-30) 07/23/18 06:33 Anion Gap 15 mmol/L 07/23/18 06:33 BUN 13 mg/dL (7-17) 07/23/18 06:33 Creatinine 0.7 mg/dL (0.7-1.2) 07/23/18 06:33 Estimated GFR > 60 ml/min 07/23/18 06:33 BUN/Creatinine Ratio 19 % 07/23/18 06:33 Glucose 144 mg/dL (65-100) H 07/23/18 06:33 Hemoglobin A1c 6.3 % (4-6) H 07/23/18 19:53 Calcium 8.2 mg/dL (8.4-10.2) L 07/23/18 06:33 Total Bilirubin 1.00 mg/dL (0.1-1.2) 07/23/18 06:33 AST 13 units/L (5-40) 07/23/18 06:33 ALT 18 units/L (7-56) 07/23/18 06:33 Alkaline Phosphatase 70 units/L (35-129) 07/23/18 06:33 Total Protein 5.6 g/dL (6.3-8.2) L 07/23/18 06:33 Albumin 3.3 g/dL (3.9-5) L 07/23/18 06:33 Albumin/Globulin Ratio 1.4 % 07/23/18 06:33 Triglycerides 65 mg/dL (2-149) 07/23/18 19:53 Cholesterol 142 mg/dL (50-199) 07/23/18 19:53 LDL Cholesterol Direct 90 mg/dL (50-130) 07/23/18 19:53 HDL Cholesterol 54 mg/dL (40-59) 07/23/18 19:53 Cholesterol/HDL Ratio 2.62 % 07/23/18 19:53 Urine Color Yellow (Yellow) 07/23/18 09:09 Urine Turbidity Clear (Clear) 07/23/18 09:09 Urine pH 6.0 (5.0-7.0) 07/23/18 09:09 Ur Specific [place] 1.029 (1.003-1.030) 07/23/18 09:09 Urine Protein <15 mg/dl mg/dL (Negative) 07/23/18 09:09 Urine Glucose (UA) Neg mg/dL (Negative) 07/23/18 09:09 Urine Ketones Neg mg/dL (Negative) 07/23/18 09:09 Urine Blood Neg (Negative) 07/23/18 09:09 Urine Nitrite Neg (Negative) 07/23/18 09:09 Ur Reducing Substances Not Reportable 07/23/18 09:09 Urine Bilirubin Neg (Negative) 07/23/18 09:09 Urine Ictotest Not Reportable 07/23/18 09:09 Urine Urobilinogen 2.0 mg/dL (<2.0) 07/23/18 09:09 Ur Leukocyte Esterase Tr (Negative) 07/23/18 09:09 Urine WBC (Auto) 1.0 /HPF (0.0-6.0) 07/23/18 09:09 Urine RBC (Auto) 1.0 /HPF (0.0-6.0) 07/23/18 09:09 U Epithel Cells (Auto) 6.0 /HPF (0-13.0) 07/23/18 09:09 Urine Mucus Few /HPF 07/23/18 09:09 Active Medications - Current Medications Current Medications: Generic Name Dose Route Start Last Admin Trade Name Freq PRN Reason Stop Dose Admin Albuterol 2.5 mg 07/23/18 14:10 07/23/18 17:25 Proventil IH 2.5 mg QID PRN Administration Shortness Of Breath Atorvastatin Calcium 40 mg 07/23/18 22:00 07/23/18 21:44 Lipitor PO 40 mg QHS RICKY Administration Folic Acid 1 mg 07/23/18 14:00 07/24/18 12:24 Folvite PO 1 mg QDAY RICKY Administration Furosemide 40 mg 07/23/18 14:00 07/24/18 09:44 Lasix PO 40 mg QDAY RICKY Administration Heparin Sodium (Porcine) 5,000 unit 07/23/18 14:00 07/24/18 05:10 Heparin SUB-Q 5,000 unit Q8HR RICKY Administration Levofloxacin/Dextrose 750 mg in 150 mls @ 100 mls/hr 07/24/18 10:00 07/24/18 09:45 Levaquin 750mg/150ml IV 100 mls/hr Q24HR RICKY Administration Protocol Metronidazole 500 mg in 100 mls @ 100 mls/hr 07/23/18 22:00 07/24/18 05:08 Flagyl 500 Mg/100 Ml IV 100 mls/hr Q8HR RICKY Administration Protocol Metoprolol Tartrate 25 mg 07/23/18 14:00 07/24/18 09:46 Lopressor PO 25 mg BID RICKY Administration Morphine Sulfate 2 mg 07/23/18 15:53 07/24/18 09:34 Morphine IV 2 mg Q4H PRN Administration Pain , Severe (7-10) Ondansetron HCl 4 mg 07/23/18 15:53 Zofran IV Q8H PRN Nausea And Vomiting Oxycodone/Acetaminophen 2 tab 07/24/18 11:42 Percocet 5/325 PO Q6H PRN Pain, Moderate (4-6) Potassium Chloride 20 meq 07/23/18 14:00 07/24/18 09:45 K-Dur PO 20 meq BID RICKY Administration
--- NOTE | 2018-07-24 13:39 | XRay Report ---
ROUTINE CHEST, TWO VIEWS: HISTORY: Cough. Compared to 03/21/15. Prominent bronchovascular markings in the right middle lobe and small right pleural effusion have developed since the previous exam. Early middle lobe pneumonia could be considered. The right upper lung and left lung are clear. Interval CABG changes are suspected. Heart size and pulmonary vascularity are within normal limits. IMPRESSION: Right middle lobe opacity. Small right pleural effusion. Correlate for pneumonia.
--- NOTE | 2018-07-24 14:14 | Progress Note ---
Assessment and Plan 57 yo F s/p diagnostic laparoscopy, reduction of incarcerated small bowel, open umbilical hernia repair with mesh, POD 1 PLan; 1. reg diet 2. dc IVF 3. dc abx 4. prn PO pain control 5. abdominal binder 6. ok to dc home with 2 week follow up in surgery office. No heavy lifting for next 2 weeks. Thank you, please call with questions. D/W Dr. Apodaca Subjective Date of service: 07/24/18 Narrative: Pt seen and examined. Feels well. Minimal incisional pain. No f/c. No cp, sob. Tolerating reg diet. No BM or flatus yet. No n/v Objective Vital Signs - 12hr 07/24/18 07/24/18 07/24/18 05:12 07:13 07:51 Temperature 98.9 F 97.7 F 97.7 F Pulse Rate 86 88 63 Respiratory 18 18 Rate Blood Pressure 121/73 Blood Pressure 145/71 145/71 [Right] O2 Sat by Pulse 99 96 Oximetry 07/24/18 07/24/18 07/24/18 09:34 09:46 10:04 Temperature Pulse Rate 89 Respiratory 18 18 Rate Blood Pressure 148/86 Blood Pressure [Right] O2 Sat by Pulse Oximetry 07/24/18 07/24/18 11:00 13:00 Temperature 97.8 F 97.8 F Pulse Rate 78 78 Respiratory 16 16 Rate Blood Pressure Blood Pressure 132/84 132/84 [Right] O2 Sat by Pulse 98 98 Oximetry - General physical appearance Narrative Exam: Gen: AAOx3. NAD CV: S1, S2+ resp: even and unlabored Abd: soft, ND, mild incisional TTP. Incisions c/d/i. Umbilical dressing c/d/i. Abdominal binder in place Ext; no c/c/e - Labs 07/23/18 06:33 07/23/18 06:33 Diabetes panel 07/23/18 07/23/18 Range/Units 19:53 19:53 Hemoglobin A1c 6.3 H (4-6) % Triglycerides 65 (2-149) mg/dL HDL Cholesterol 54 (40-59) mg/dL
--- NOTE | 2018-07-24 14:14 | Discharge Summary ---
<MARIA FERNANDA KIM - Last Filed: 07/24/18 14:29> Providers - Providers Date of Admission: 07/23/18 10:13 Attending physician: YUNIOR REDD MD 07/23/18 07:36 Consult to Physician [CONS] Urgent Comment: Consulting Provider: MARIA FERNANDA KIM Physician Instructions: Reason For Exam: possible strangulated hernia [facility] Condition: Fair Disposition: DC-01 TO HOME OR SELFCARE Exam - Constitutional Vitals: Temp Pulse Resp BP Pulse Ox 97.8 F 78 16 132/84 98 07/24/18 13:00 07/24/18 13:00 07/24/18 13:00 07/24/18 13:00 07/24/18 13:00 Plan Activity: other (NO HEAVY LIFTING MORE THAN 15 LBS FOR THE NEXT 4 WEEKS) Diet: low fat Wound: open to air (MAY REMOVE UMBILICAL DRESSING TOMORROW. MAY SHOWER WITH SOAP AND WATER. PAT INCISIONS DRY, DO NOT SCRUB. DO NOT SUBMERGE INCISIONS IN WATER) Special Instructions: no heavy lifting Follow up with: MONIQUE ANDREWSURBANA MD WINTER [Primary Care Provider] - 3-5 Days MARIA FERNANDA KIM DO [Staff Physician] - 14 Days Prescriptions: oxyCODONE /ACETAMINOPHEN [Percocet 5/325 mg] 2 tab PO Q6H PRN #20 tablet PRN Reason: Pain, Moderate (4-6) <YUNIOR REDD - Last Filed: 07/25/18 16:23> Providers - Providers Date of Admission: 07/23/18 10:13 Attending physician: YUNIOR REDD MD 07/23/18 07:36 Consult to Physician [CONS] Urgent Comment: Consulting Provider: MARIA FERNANDA KIM Physician Instructions: Reason For Exam: possible strangulated hernia [facility] course: 57F w hx of MVR-biological, who pw imcarcerated umbilicial hernia -she received laparoscopic reduction of incarcerated small bowel and open umbilical hernia with mesh, diet was advanced and she did well -imaging confirmed PNA, therefore abx were called in for her at [facility] in [place] jorge RUBALCAVA with patient, and she verbalized understanding Diagnosis Incarcerated umbilicial hernia containing segment of bowel pna sepsis hx of mitral valve replacement- bio valve Time spent for discharge: 33 mins Core Measure Documentation - Palliative Care Palliative Care/ Comfort Measures: Not Applicable - Core Measures Any of the following diagnoses?: none Exam - Constitutional Vitals: Temp Pulse Resp BP Pulse Ox 97.8 F 78 16 132/84 98 07/24/18 13:00 07/24/18 13:00 07/24/18 13:00 07/24/18 13:00 07/24/18 13:00 General appearance: Present: no acute distress, well-nourished - EENT Eyes: Present: PERRL ENT: hearing intact, clear oral mucosa - Neck Neck: Present: supple, normal ROM - Respiratory Respiratory effort: normal Respiratory: bilateral: CTA - Cardiovascular Heart Sounds: Present: S1 & S2. Absent: rub, click - Extremities Extremities: pulses symmetrical, No edema Peripheral Pulses: within normal limits - Abdominal General gastrointestinal: Present: soft, non-tender, non-distended, normal bowel sounds Female genitourinary: Present: normal - Integumentary Integumentary: Present: clear, warm, dry - Musculoskeletal Musculoskeletal: gait normal, strength equal bilaterally - Psychiatric Psychiatric: appropriate mood/affect, intact judgment & insight - Neurologic Neurologic: CNII-XII intact, moves all extremities
--- NOTE | 2018-07-24 15:07 | Operative Report ---
PREOPERATIVE DIAGNOSIS: Incarcerated umbilical hernia. POSTOPERATIVE DIAGNOSIS: Incarcerated umbilical hernia. FINDINGS: Knuckle of small bowel along with preperitoneal fat incarcerated and 2 cm umbilical hernia defect. Small bowel examined and although with patchy ecchymosis on a portion of the wall, it was viable with some peristalsis. No perforation. PROCEDURE: Diagnostic laparoscopy, reduction of incarcerated small bowel, open umbilical hernia repair with mesh. ANESTHESIA: General endotracheal anesthesia, local. SURGEON: Mer Helms DO BAKERY CLERK: Sarthak Nobles MD. ESTIMATED BLOOD LOSS: Minimal. PATHOLOGY: Hernia contents. SPECIMEN DISPOSITION: To lab. CONDITION AND DISPOSITION: The patient is stable to PACU. HISTORY OF PRESENT ILLNESS AND INDICATIONS: The patient is a 57-year-old female, who presented to the Emergency Room with complaints of severe umbilical abdominal pain. The patient was found to have an incarcerated umbilical hernia. She had a leukocytosis in the 20s and CT scan of the abdomen and pelvis showed small bowel incarcerated in the hernia without evidence of bowel ischemia. On physical exam, the hernia was not reducible and was very firm and tender to palpation. Based on this physical exam and elevated white blood cell count there was concern for impending bowel ischemia and therefore surgery was recommended. All risks, benefits and alternatives to surgery were discussed with the patient and questions answered. Consent obtained. PROCEDURE IN DETAIL: The patient was identified in the preoperative area, taken back to operating room, placed on the operative table in supine position. After anesthesia was induced Snider catheter was sterilely placed by the circulating nurse. The abdomen was prepped and draped in usual sterile fashion. Timeout was performed. A local anesthetic was infiltrated into all skin incision sites. A small luz incision was made in the left upper quadrant at Post's point through which a Veress needle was inserted. The Veress needle positioning was confirmed using saline drop test and the abdomen insufflated to 15 mmHg. The Veress needle was then removed and a 5 mm Optiview trocar placed through this incision. Abdomen was inspected. There was no underlying injury to any of the abdominal structures. The hernia was reduced under direct visualization of the small bowel was visualized. There was a knuckle of small bowel incarcerated in the hernia, which was inspected. There was patchy ecchymosis of this 2-3 cm region of small bowel; however, only involved part of the wall of the small bowel. Some peristalsis was visualized. There was also evidence of preperitoneal fat incarcerated in a large hernia sac. The defect measured approximately 2 cm. At this point, decision was made to create a small midline incision around the umbilicus in order to reduce the preperitoneal fat, which could not be reduced laparoscopically. An incision was made around the umbilicus using a 15 blade. The dissection was carried down through the skin and subcutaneous tissue using Bovie electrocautery while the abdomen was insufflated. Once the hernia was encountered the preperitoneal fat incarcerated in the hernia was circumferentially dissected and freed from the hernia. This preperitoneal fat was contiguous with the falciform ligament. Therefore, it was ligated using a 0 silk suture and transected and the preperitoneal fat was passed off the table as a specimen. The fascial defect was seen and measured 2 cm as previously stated. The hernia sac was dissected until fascia was circumferentially visible. An sadia wound protector was placed through the defect and the piece of small bowel that was incarcerated in the hernia was brought out through the Sadia wound protector and once again examined. There was some patchy ecchymosis; however, the bowel did appear viable. The bowel was placed back into normal anatomic position and the Sadia wound protector removed. An [address] mesh was chosen to fix the defect. This was placed into the abdomen and sutured in all 4 quadrants using a 2-0 PDS suture. The tabs were cut and the fascia was reapproximated over the mesh using 0 Vicryl interrupted stitches. The subcutaneous tissue was irrigated and the abdomen once again checked for hemostasis, which was carefully achieved. The abdomen was again insufflated and the repair was examined. The mesh was seen to lay flat up against the abdominal wall satisfactorily. The abdomen was then slowly desufflated and the mesh was seen to lay flat. The ports were removed. The deep dermal layer of the midline incision was closed with interrupted 2-0 Vicryl suture. All skin incisions were closed with 4-0 Monocryl subcuticular stitches and skin glue. A 4 x 4 dressing was placed at the umbilicus and covered with Tegaderm. At then end of the case, all sponge, instrument, and sharp counts were correct x2. The patient was awoken from anesthesia and Snider catheter removed. The patient was taken to PACU in stable condition. JOB# [id number] LIBIA/GILA COBIAN
[2018-07-24 16:05] VITALS: BP 127/81
== END 2018-07-24 18:31 | disposition home or self-care (01) | DRG 853 ==
LOC: ED 06:09 → 3A 10:13 → 3B-SURG 19:20
PROVIDERS: ADMIT Family Medicine; ATTEND Internal Medicine
PROC: 0WUF0JZ Supplement Abdominal Wall with Synthetic Substitute, Open Approach (ICD-10-PCS; principal; 2018-07-23)
PROC: 0DJW4ZZ Inspection of Peritoneum, Percutaneous Endoscopic Approach (ICD-10-PCS; 2018-07-23)
DX: A41.9 Sepsis, unspecified organism (principal); J18.9 Pneumonia, unspecified organism; K42.0 Umbilical hernia with obstruction, without gangrene; R73.9 Hyperglycemia, unspecified; Z95.4 Presence of other heart-valve replacement; Z88.1 Allergy status to other antibiotic agents; Z88.8 Allergy status to other drugs, medicaments and biological substances; Z79.51 Long term (current) use of inhaled steroids; Z79.899 Other long term (current) drug therapy; Z98.51 Tubal ligation status; Z99.81 Dependence on supplemental oxygen; Z87.891 Personal history of nicotine dependence
CPT/HCPCS: 36415; 71046; 74177; 80053; 80061; 81001; 83036; 85007; 85025; 88302; 93005; 93010; 96374; 96375; G0378; A9270-GY; C1781; J1100; J1170; J1644; J1956; J2270; J2370; J2405; J2704; J2710; J3010; J7030; Q9967